=== PATIENT | male | born 1965 | race Caucasian/White ===

== ENCOUNTER 2018-07-07 14:45 | Emergency (ER) | payer SELFPAY ==
[~2018-07-07] VITALS: Ht 181.6 cm; Wt 82.7 kg
[2018-07-07 14:59] VITALS: Ht 181.6 cm; Wt 82.7 kg
[2018-07-07] MEDS ORDERED: CLARITIN 10 MG10 MG PO (15:01)
[2018-07-07] MEDS ORDERED: ZOFRAN4 MG PO (15:01)
[2018-07-07] MEDS ORDERED: BENADRYL25 MG PO (15:01)
[2018-07-07] MEDS ORDERED: PEPCID AC20 MG PO (15:01)
[2018-07-07 20:37] LABS: BASOPHILS 0.3 % (0-2); EOSINOPHILS 1.7 % (0-7); HEMATOCRIT 50.5 % (42.0-54.0); HEMOGLOBIN 18.2 g/dL (13.5-17.5); IMMATURE GRANULOCYTES 0.1 % (0-5); LYMPHOCYTES 27.1 % (15-50); MCV 91.7 fL (80.0-100.0); MEAN PLATELET VOLUME 9.4 fL (7.4-10.4); MONOCYTES 7.6 % (2-11); NEUTROPHILS 63.2 % (40-80); PLATELET COUNT 224 10x3/uL (130-400); RBC 5.51 10x6/uL (4.20-6.10); RDW 12.5 % (11.5-14.5); WBC 8.7 10x3/uL (4.8-10.8)
[2018-07-07 20:46] LABS: INR 1.05 (0.85-1.17); PROTIME 13.2 SECONDS (11.6-15.0)
[2018-07-07 20:54] LABS: ALBUMIN 4.5 g/dL (3.4-5.0); ALKALINE PHOSPHATASE 93 U/L (46-116); ALT (SGPT) 29 U/L (10-68); BILIRUBIN - TOTAL 0.82 mg/dL (0.2-1.3); CALC OSMOLALITY 283 mosm/kg (275-300); CALCIUM 9.2 mg/dL (8.5-10.1); CARBON DIOXIDE 24.9 mmol/L (21.0-32.0); CHLORIDE - SERUM 102 mmol/L (98-107); GLUCOSE 74 mg/dL (74-106); POTASSIUM - SERUM 4.1 mmol/L (3.5-5.1); PROTEIN - SERUM 8.3 g/dL (6.4-8.2); SODIUM 141 mmol/L (136-145); UREA NITROGEN 24 mg/dL (7-18); eGFR NON AFRICAN AMERICAN 83 mL/min (90-120)
[2018-07-07 23:11] VITALS: BP 135/75
== END 2018-07-07 23:00 | disposition home or self-care (01) ==
LOC: D.ER 14:45
PROVIDERS: Family Medicine
DX: R13.10 Dysphagia, unspecified (principal); K21.9 Gastro-esophageal reflux disease without esophagitis; F17.200 Nicotine dependence, unspecified, uncomplicated